=== PATIENT | female | born 2000 | race Two or more races ===

== ENCOUNTER 2023-09-10 13:08 | Emergency (ER) | payer OTHER ==
[~2023-09-10] VITALS: Ht 154.9 cm; Wt 45.4 kg
[2023-09-10] MEDS ORDERED: LACTOBACILLUS ACIDOPHILUS 1 CAP CAP PO STA (15:31)
[2023-09-10] MEDS ORDERED: 0.9 % SODIUM CHLORIDE 500 ML IV STA (15:31)
[2023-09-10] MEDS ORDERED: FAMOTIDINE/PF 20 MG/2 ML VIAL IV PUSH STA (15:33)
[2023-09-10 16:54] LABS: CALCIUM 9.2 mg/dL (8.5-10.1); CREATININE SERUM 0.63 mg/dL (0.55-1.02); GFR 118.16; POTASSIUM 3.8 mEq/L (3.5-5.1)
== END 2023-09-10 20:22 | disposition home or self-care (01) ==
LOC: ER 13:09
PROVIDERS: General Practice
DX: A08.8 Other specified intestinal infections (principal)

== ENCOUNTER → 2025-05-23 | Emergency (ER) | payer OTHER ==
[~2025-05-23] VITALS: Ht 154.9 cm; Wt 56.7 kg
[~2025-05-23] MED LIST: CETIRIZINE HCL 5 MG/5 ML ML PO ONE; INTESTINEX680 M1 PO; LACTOBACILLUS ACIDOPHILUS 1 CAP CAP PO ONE; ZYRTEC10 MG PO
[2025-05-23 18:00] LABS: BASO % 0.2 % (0.1-1.2); EOS # 0.39 (0.04-0.54); EOS % 4.6 % (0.7-7.0); LYMPH # 2.22 (1.18-3.74); LYMPH % 26.0 % (19.3-53.1); MEAN PLATELET VOLUME 9.20 fl (9.4-12.4); MONO # 0.93 (0.24-0.82); MONO % 10.9 % (4.7-12.5); NEUT # 4.96 (1.56-6.13); NEUT % 58.2 % (34.0-71.1); RED CELL DISTRIBUTION WIDTH 11.9 % (11.6-14.4)
[2025-05-23 18:52] LABS: COVID-19 AG NEGATIVE (NEGATIVE)
== END | disposition home or self-care (01) ==
LOC: ER 14:18
PROVIDERS: General Practice
DX: J00 Acute nasopharyngitis [common cold] (principal); J45.909 Unspecified asthma, uncomplicated; Z20.822 Contact with and (suspected) exposure to COVID-19